=== PATIENT | male | born 1985 | race Caucasian/White ===

== ENCOUNTER 2018-10-23 17:38 | Inpatient (IN) | payer MEDICAID, OTHER | END 2018-10-31 17:19 | disposition home or self-care (01) | LOC: SUR 3N 10-29 21:30 → ER 17:38 → SUR 3N 10-26 15:50 → ICU 2S 23:47 | DX: S36.00XA Unspecified injury of spleen, initial encounter (principal); S27.2XXA Traumatic hemopneumothorax, initial encounter; S22.49XA Multiple fractures of ribs, unspecified side, initial encounter for closed fracture ==